=== PATIENT | female | born 1965 | race Two or more races ===

== ENCOUNTER 2023-01-03 06:09 | Inpatient (IN) | payer BC ==
[~2023-01-03] VITALS: Ht 157.5 cm; Wt 101.9 kg
[~2023-01-03 06:09] MED LIST: FENO134C PO; GABA-339 PO; HYDR-4798 PO; LISI20TA28 PO; MULT-1018 OR; NIAC500T71 PO; OMEG600C2 PO; PYRI1TAB3 PO; ROSU10TA16 PO; [UNRECOGNIZED DRUG - CODE] TD
[2023-01-03] MEDS ORDERED: ceFAZolin 1GM/50ML 100 ML IV ONE (06:27)
[2023-01-03] MEDS ORDERED: SUCCINYLCHOLINE CHLORIDE 20 MG/ML 10ML VIAL IV ONE (06:51)
[2023-01-03] MEDS ORDERED: ROCURONIUM 10MG/ML 10ML VIAL IV ONE (06:51)
[2023-01-03] MEDS ORDERED: DOXAPRAM HCL 20 MG/ML 20ML VIAL INJ IV ONE (06:51)
[2023-01-03] MEDS ORDERED: METOCLOPRAMIDE HCL 5MG/ml INJ 2ml VIAL IV PRN (07:00)
[2023-01-03] MEDS ORDERED: MORPHINE SULFATE INJ 2 MG/ml SYRG IV PRN ×2 (07:00→11:30)
[2023-01-03] MEDS ORDERED: HYDROmorphone HCL 2 MG/ML VL/or syr IV PRN ×2 (07:00)
[2023-01-03] MEDS ORDERED: HYDROmorphone HCL 2 MG/ML VL/or syr ONE (07:08)
[2023-01-03] MEDS ORDERED: MIDAZOLAM HCL 2MG/2ML 2ml VIAL (1mg/ml) ONE (07:08)
[2023-01-03] MEDS ORDERED: NEOSTIGMINE 1 MG/ML INJ (10mg/10ML VIAL) ONE (07:08)
[2023-01-03] MEDS ORDERED: PROPOFOL 10 MG/ML 20 ML IV ONE ×3 (07:08→10:21)
[2023-01-03] MEDS ORDERED: DexAMETHasone SOD PHOS 10MG/1ML VIAL INJ ONE (07:08)
[2023-01-03] MEDS ORDERED: ONDANSETRON HCL 4 MG/2 ML VIAL ONE (07:08)
[2023-01-03] MEDS ORDERED: GLYCOPYRROLATE 0.2 MG/ML 1ML VIAL ONE (07:08)
[2023-01-03] MEDS ORDERED: fentaNYL CITRATE 100 MCG/2 ML VL ONE (07:08)
[2023-01-03] MEDS ORDERED: SODIUM CHLORIDE LOCK 30 ML ONE (07:08)
[2023-01-03] MEDS ORDERED: MINERAL OIL TOPICAL 10ml TOP ONE (09:33)
[2023-01-03] MEDS ORDERED: ACETAMINOPHEN 325 MG TAB PO PRN (11:30)
[2023-01-03] MEDS ORDERED: MILK OF MAGNESIA 30ML SUSP PO PRN (11:30)
[2023-01-03] MEDS ORDERED: NITROGLYCERIN 0.4 MG SL TAB SL PRN (11:30)
[2023-01-03] MEDS ORDERED: ONDANSETRON HCL 4 MG/2 ML VIAL IV PRN (11:30)
[2023-01-03] MEDS ORDERED: DOCUSATE SOD 100 MG CAP PO PRN (11:30)
[2023-01-03] MEDS: CYCLOBENZAPRINE HCL 10 MG TAB PO SCH ×2 (11:57→22:32)
[2023-01-03] MEDS: ceFAZolin 1GM/50ML 50 ML IV SCH ×2 (14:39→22:31)
[2023-01-03] MEDS: D5W/SOD CHLO 0.9% 1,000 ML IV SCH ×2 (14:48→22:45)
[2023-01-03] MEDS: MORPHINE SULFATE INJ 2 MG/ml SYRG IV PRN ×2 (16:37→22:35)
[2023-01-03] MEDS: HYDROcodone-ACET 10/325MG TAB PO PRN (19:34)
[2023-01-03 20:00] VITALS: BP 114/60
[2023-01-03 22:00] VITALS: BP 114/60
[2023-01-03] MEDS: DOCUSATE SOD 100 MG CAP PO SCH (22:32)
[2023-01-04] VITALS (7 sets, daily range): BP systolic 95–128; BP diastolic 39–80
[2023-01-04] MEDS: CYCLOBENZAPRINE HCL 10 MG TAB PO SCH ×3 (05:53→21:11)
[2023-01-04] MEDS: DOCUSATE SOD 100 MG CAP PO SCH ×2 (08:55→21:11)
[2023-01-04] MEDS: D5W/SOD CHLO 0.9% 1,000 ML IV SCH ×2 (08:55→18:00)
[2023-01-04] MEDS: MORPHINE SULFATE INJ 2 MG/ml SYRG IV PRN ×2 (08:56→13:59)
[2023-01-04] MEDS: HYDROcodone-ACET 10/325MG TAB PO PRN (21:12)
[2023-01-05] MEDS: D5W/SOD CHLO 0.9% 1,000 ML IV SCH ×3 (02:16→23:30)
[2023-01-05 02:18] LABS: Basophils # (auto) 0 10 ^3/uL (0-0.2); Basophils % (auto) 0.3 % (0.0-2.0); Monocytes # (auto) 0.9 10 ^3/uL (0-1.3); Neutrophils # (auto) 8.8 10 ^3/uL (1.6-8.6); White Blood Cell 13.3 10^3/uL (4.4-10.8)
[2023-01-05 02:20] LABS: Eosinophils # (auto) 0.2 10 ^3/uL (0-0.8); Eosinophils % (auto) 1.2 % (0.0-7.0); Hematocrit 21.6 % (36.0-46.0); Hemoglobin 7.6 g/dL (12.2-16.2); Lymphocytes # (auto) 3.4 10 ^3/uL (0.4-5.4); Lymphocytes % (auto) 25.8 % (10.0-50.0); Mean Corpuscular Hemoglobin 30.9 pg (28.0-32.0); Mean Corpuscular Hgb Conc. 34.9 g/dL (32.0-36.0); Mean Corpuscular Volume 88.6 fL (80.0-100.0); Monocytes % (auto) 6.8 % (0.0-12.0); Neutrophils % (auto) 65.9 % (37.0-80.0); Red Blood Cells 2.44 10^6/uL (4.0-5.20); Red Cell Distribution Width 13.1 % (11.8-14.3)
[2023-01-05 02:23] LABS: Calcium 8.1 mg/dL (8.5-10.1); Potassium 3.9 mmol/L (3.5-5.1)
[2023-01-05 02:25] LABS: BUN/Creatinine Ratio 16.4 (10.0-20.0)
[2023-01-05] MEDS: HYDROcodone-ACET 10/325MG TAB PO PRN (03:30)
[2023-01-05 05:00] VITALS: BP 117/47
[2023-01-05] MEDS: CYCLOBENZAPRINE HCL 10 MG TAB PO SCH ×3 (05:27→21:31)
[2023-01-05 08:30] VITALS: BP 112/59
[2023-01-05 09:00] VITALS: BP 112/59
[2023-01-05] MEDS: DOCUSATE SOD 100 MG CAP PO SCH ×2 (09:45→21:30)
[2023-01-05] MEDS: MORPHINE SULFATE INJ 2 MG/ml SYRG IV PRN ×2 (10:06→17:34)
[2023-01-05 11:24] LABS: Mean Corpuscular Volume 88.5 fL (80.0-100.0); Red Blood Cells 2.71 10^6/uL (4.0-5.20); Red Cell Distribution Width 13.3 % (11.8-14.3)
[2023-01-05 11:26] LABS: Hemoglobin 8.1 g/dL (12.2-16.2); Mean Corpuscular Hemoglobin 29.9 pg (28.0-32.0); Mean Corpuscular Hgb Conc. 33.8 g/dL (32.0-36.0)
[2023-01-05 11:53] LABS: % Iron Saturation 5.5 % (15-50)
[2023-01-05 12:05] LABS: Ferritin 77.5 ng/mL (10-322)
[2023-01-05 12:06] LABS: Folate (Folic Acid) 19.75 ng/mL (5.38-24)
[2023-01-05 13:00] VITALS: BP 116/64
[2023-01-05 17:00] VITALS: BP 152/69
[2023-01-05 22:00] VITALS: BP 108/55
[2023-01-06] MEDS ORDERED: SODIUM FERR GLUC 62.5MG/5ML 125 MG in SODIUM CHL 0.9% 100 ML IV ONE (01:15)
[2023-01-06] MEDS ORDERED: POLYETHYLENE GLYCOL 17 GM PWDR PO PRN (01:15)
[2023-01-06 05:00] VITALS: BP 121/66
[2023-01-06] MEDS: CYCLOBENZAPRINE HCL 10 MG TAB PO SCH ×3 (05:00→20:44)
[2023-01-06] MEDS: HYDROcodone-ACET 10/325MG TAB PO PRN ×2 (05:02→18:03)
[2023-01-06 08:00] VITALS: BP_SYST 122; BP_DIAS 45; BP_DIAS 69
[2023-01-06] MEDS ORDERED: IRON SUCROSE COMPLEX 200 MG in SODIUM CHL 0.9% 100 ML IV ONE (08:00)
[2023-01-06] MEDS: D5W/SOD CHLO 0.9% 1,000 ML IV SCH (10:01)
[2023-01-06] MEDS: DOCUSATE SOD 100 MG CAP PO SCH ×2 (10:01→20:44)
[2023-01-06] MEDS: FERROUS SULFATE 325mg EC TAB PO SCH ×2 (10:01→18:02)
[2023-01-06 12:00] VITALS: BP 123/60
[2023-01-06 16:00] VITALS: BP 114/63
[2023-01-06] MEDS ORDERED: DOCU-94 PO (19:07)
[2023-01-06] MEDS ORDERED: FER325T PO (19:07)
[2023-01-06] MEDS: MORPHINE SULFATE INJ 2 MG/ml SYRG IV PRN (20:27)
[2023-01-06 22:00] VITALS: BP 111/67
[2023-01-07] MEDS: HYDROcodone-ACET 10/325MG TAB PO PRN ×4 (02:31→22:18)
[2023-01-07] MEDS: D5W/SOD CHLO 0.9% 1,000 ML IV SCH ×3 (02:37→15:30)
[2023-01-07 05:00] VITALS: BP 122/60
[2023-01-07] MEDS: CYCLOBENZAPRINE HCL 10 MG TAB PO SCH ×3 (05:57→21:52)
[2023-01-07 08:00] VITALS: BP 119/64
[2023-01-07 09:00] VITALS: BP 119/64
[2023-01-07] MEDS: FERROUS SULFATE 325mg EC TAB PO SCH ×2 (09:01→18:05)
[2023-01-07] MEDS: DOCUSATE SOD 100 MG CAP PO SCH ×2 (09:02→21:52)
[2023-01-07 13:00] VITALS: BP 113/54
[2023-01-07 17:00] VITALS: BP 133/83
[2023-01-07] MEDS: MORPHINE SULFATE INJ 2 MG/ml SYRG IV PRN (18:22)
[2023-01-07 22:00] VITALS: BP 115/65
[2023-01-08] MEDS: D5W/SOD CHLO 0.9% 1,000 ML IV SCH ×3 (01:30→22:54)
[2023-01-08 05:00] VITALS: BP 102/77
[2023-01-08] MEDS: CYCLOBENZAPRINE HCL 10 MG TAB PO SCH ×3 (05:26→21:03)
[2023-01-08] MEDS: FERROUS SULFATE 325mg EC TAB PO SCH ×2 (08:44→18:03)
[2023-01-08] MEDS: DOCUSATE SOD 100 MG CAP PO SCH ×2 (08:44→21:03)
[2023-01-08 09:00] VITALS: BP 122/51
[2023-01-08] MEDS: HYDROcodone-ACET 10/325MG TAB PO PRN (13:13)
[2023-01-08 13:26] VITALS: BP 125/64
[2023-01-08] MEDS: MORPHINE SULFATE INJ 2 MG/ml SYRG IV PRN (16:09)
[2023-01-08 17:22] VITALS: BP 136/76
[2023-01-08 22:00] VITALS: BP 107/53
[2023-01-09 05:00] VITALS: BP 104/50
[2023-01-09] MEDS: CYCLOBENZAPRINE HCL 10 MG TAB PO SCH ×2 (05:03→15:02)
[2023-01-09] MEDS: HYDROcodone-ACET 10/325MG TAB PO PRN ×2 (05:07→12:25)
[2023-01-09 08:40] VITALS: BP 104/60
[2023-01-09] MEDS: DOCUSATE SOD 100 MG CAP PO SCH (08:50)
[2023-01-09] MEDS: FERROUS SULFATE 325mg EC TAB PO SCH ×2 (08:50→18:00)
[2023-01-09] MEDS: D5W/SOD CHLO 0.9% 1,000 ML IV SCH ×2 (08:53→17:30)
[2023-01-09 12:40] VITALS: BP 117/51
[2023-01-09 16:35] VITALS: BP 104/63
[2023-01-09] MEDS ORDERED: HYDR-4798 PO (16:51)
[2023-01-09] MEDS ORDERED: CYCL-611 PO (16:51)
== END 2023-01-09 20:00 | disposition home or self-care (01) | DRG 460 ==
LOC: SUR 06:09 → TELE 11:29 → TELE-CENTR 16:09
PROVIDERS: ADMIT Orthopaedic Surgery; ATTEND Orthopaedic Surgery
PROC: 01NB0ZZ Release Lumbar Nerve, Open Approach (ICD-10-PCS; principal; 2023-01-04)
PROC: 0SG00J1 Fusion of Lumbar Vertebral Joint with Synthetic Substitute, Posterior Approach, Posterior Column, Open Approach (ICD-10-PCS; 2023-01-04)
PROC: 0SG30J1 Fusion of Lumbosacral Joint with Synthetic Substitute, Posterior Approach, Posterior Column, Open Approach (ICD-10-PCS; 2023-01-04)
PROC: 01NR0ZZ Release Sacral Nerve, Open Approach (ICD-10-PCS; 2023-01-04)
DX: M48.062 Spinal stenosis, lumbar region with neurogenic claudication (principal); E78.5 Hyperlipidemia, unspecified; I10 Essential (primary) hypertension; M43.16 Spondylolisthesis, lumbar region; M51.36 Other intervertebral disc degeneration, lumbar region; D50.9 Iron deficiency anemia, unspecified; G62.9 Polyneuropathy, unspecified; G89.29 Other chronic pain
CPT/HCPCS: 36415; 72100; 76000; 80048; 82607; 82728; 82746; 83540; 83550; 85025; 86850; 86900; 86901; 97110; 97116; 97530; G0378; J0330; J0690; J1100; J1756; J2250; J2405; J2704; J7042